=== PATIENT | male | born 1990 | race African-American/Black ===

== ENCOUNTER 2018-06-06 12:22 | Emergency (ER) | payer MEDICAID ==
[2018-06-06 12:30] VITALS: BP 109/57
--- NOTE | 2018-06-06 12:37 | EDPHY ---
H & P Stated Complaint: R lateral knee pain, injured playing basketball Time Seen by Provider: 06/06/18 12:32 HPI/ROS: CHIEF COMPLAINT: Right knee pain HISTORY OF PRESENT ILLNESS: Patient is a 28-year-old man who complains of knee pain just proximal to his right patella, laterally. He states that he landed hard on it last night and was off balance while playing basketball. He had some pain initially but was able to keep playing. He tried to place ice on it last night but woke up this morning with increased pain. He is able to ambulate but with pain. He is able to extend and flex his knee. No obvious swelling or deformity. Severity: Moderate Modifying factors: Weight-bearing REVIEW OF SYSTEMS: Constitutional: denies: chills, fever, recent illness, recent injury EENTM: denies: blurred vision, double vision, nose congestion Respiratory: denies: cough, shortness of breath Cardiac: denies: chest pain, irregular heart rate, lightheadedness, palpitations Gastrointestinal/Abdominal: denies: abdominal pain, diarrhea, nausea, vomiting, blood streaked stools Genitourinary: denies: dysuria, frequency, hematuria, pain Musculoskeletal: See HPI Skin: denies: lesions, rash, jaundice, bruising Neurological: denies: headache, numbness, paresthesia, tingling, dizziness, weakness Hematologic/Lymphatic: denies: blood clots, easy bleeding, easy bruising Immunologic/allergic: denies: HIV/AIDS, transplant 10 systems reviewed and negative except as noted EXAM: GENERAL: Well-appearing, well-nourished and in no acute distress. HEAD: Atraumatic, normocephalic. EYES: Pupils equal round and reactive to light, extraocular movements intact, sclera anicteric, conjunctiva are normal. ENT: TMs normal, nares patent, oropharynx clear without exudates. Moist mucous membranes. NECK: Normal range of motion, supple without lymphadenopathy or JVD. LUNGS: Breath sounds clear to auscultation bilaterally and equal. No wheezes rales or rhonchi. HEART: Regular rate and rhythm without murmurs, rubs or gallops. ABDOMEN: Soft, nontender, normoactive bowel sounds. No guarding, no rebound. No masses appreciated. BACK: No CVA tenderness, no spinal tenderness, step-offs or deformities EXTREMITIES: Right knee pain just above and lateral to the patella. Tender insertion of the quadriceps tendon. Is able to extend and flex his knee but with pain. No obvious laxity felt. No pain with axial loading. Normal sensation and pulses distally. Obvious swelling or deformity. NEUROLOGICAL: Cranial nerves II through XII grossly intact. Normal speech, normal gait. 5/5 strength, normal movement in all extremities, normal sensation , normal reflexes PSYCH: Normal mood, normal affect. SKIN: Warm, dry, normal turgor, no visible rashes or lesions. Source: Patient Exam Limitations: No limitations - Personal History Current Tetanus/Diphtheria Vaccine: Unsure Current Tetanus Diphtheria and Acellular Pertussis (TDAP): Unsure - Medical/Surgical History Hx Asthma: No Hx Chronic Respiratory Disease: No Hx Diabetes: No Hx Cardiac Disease: No Hx Renal Disease: No Hx Cirrhosis: No Hx Alcoholism: No Hx HIV/AIDS: No Hx Splenectomy or Spleen Trauma: No Other PMH: None reported - Family History Significant Family History: No pertinent family hx - Social History Smoking Status: Never smoked Alcohol Use: Sober Drug Use: None Constitutional: Initial Vital Signs Temperature (C) 36.9 C 06/06/18 12:25 Heart Rate 62 06/06/18 12:25 Respiratory Rate 16 06/06/18 12:25 Blood Pressure 109/57 L 06/06/18 12:25 O2 Sat (%) 97 06/06/18 12:25 O2 Delivery Mode Room Air Allergies/Adverse Reactions: No Known Allergies Allergy (Verified 06/06/18 12:32) Home Medications: Medication Instructions Recorded NK [No Known Home Meds] 06/06/18 ED Images - Extremities Legs Front/Back: 1 - Pain and mild tenderness to palpation, pain with palpation of the tendon. Medical Decision Making - Diagnostics Imaging Results: Imaging Impressions Knee X-Ray 06/06/18 12:35 Impression: No evidence for acute osseous abnormality. Question mild soft tissue injury to the quadriceps tendon and mild suprapatellar joint effusion. Imaging: I viewed and interpreted images myself (Negative for fractures) ED Course/Re-evaluation: Patient's x-ray is reassuring. I suspect that he has a tendinitis or partial tear of his quadriceps muscle laterally. We discussed conservative treatment. We have placed him in a brace. I encouraged ice and anti-inflammatories and gradual reintroduction to activity. I recommended that he follow up with Orthopedics and have an MRI if his symptoms are not improving in 1 week. He understands and agrees with this plan. He declines medication here. Differential Diagnosis: Partial list of the Differential diagnosis considered include but were not limited to; quadriceps tear, tendinitis and although unlikely based on the history and physical exam, I also considered tibial plateau fracture, patellar fracture, patellar tendon injury, meniscus injury. I discussed these differential diagnoses and the plan with the patient as well as the usual and expected course. The patient understands that the diagnosis is provisional and that in medicine we are not always correct and that further workup is often warranted. Usual and customary warnings were given. All of the patient's questions were answered. The patient was instructed to return to the emergency department should the symptoms at all worsen or return, otherwise to followup with the physician as we discussed. Departure - Departure Disposition: Home, Routine, Self-Care Clinical Impression: Knee pain, right Qualifiers: Chronicity: acute Qualified Code(s): M25.561 - Pain in right knee Condition: Fair Instructions: Musculoskeletal Pain (ED), Knee Pain (ED) Referrals: El Pal MD [Medical Doctor] - As per Instructions
== END 2018-06-06 13:25 | disposition home or self-care (01) ==
LOC: CED 12:22
DX: M25.561 Pain in right knee (principal)
CPT/HCPCS: 73564-PO; L1830

== ENCOUNTER → 2018-08-09 | Outpatient (CLI) | payer MEDICAID | LOC: FIMAGING 13:03 | PROVIDERS: ATTEND Orthopaedic Surgery | DX: S80.01XA Contusion of right knee, initial encounter (principal); M25.461 Effusion, right knee ==